=== PATIENT | female | born 1940 | race Two or more races ===

== ENCOUNTER 2016-03-21 09:48 | Day surgery (SDC) | payer MEDICARE, OTHER ==
[~2016-03-21 09:48] MED LIST: FENTANYL 0 ML ONE; FENTANYL 250 MCG/5 ML AMP IV PRN; IV START KIT ONE; LACTATED RINGERS 1,000 ML IV SCH; LACTATED RINGERS 1,000 ML ONE; LIDOCAINE Viscous 2% 15 ML UDCUP ONE; LIDOCAINE Viscous 2% 15 ML UDCUP PO PRN; MIDAZOLAM HCL 5 MG/5 ML VIAL IV PRN; MIDAZOLAM HCL 5 MG/5 ML VIAL ONE
[2016-03-21] MEDS ORDERED: MIDAZOLAM HCL 5 MG/5 ML VIAL ONE (10:43)
[2016-03-21] MEDS ORDERED: LIDOCAINE Viscous 2% 15 ML UDCUP ONE (10:44)
[2016-03-21] MEDS ORDERED: FENTANYL 5 ML ONE (10:44)
[2016-03-21 16:39] LABS: HELICOBACTER PYLORII DETECTION NEGATIVE (NEGATIVE)
--- NOTE | 2016-03-23 14:56 | SURGPATH ---
[employer] [address] [place] [id number] Patient Name: GREY VÁSQUEZ MR#: [id number] : 1940 Gender: F Specimen #: [id number] Collected: 03/21/2016 Received: 03/22/2016 Reported: 03/23/2016 Submitting Phys: NATHANIEL BALLARD Copy [facility] Clinical History / Pre-Operative Diagnosis: ANEMIA; MELENA; ABDOMINAL PAIN; RULE OUT GIARDIA, CELIAC SPRUE AND GASTRITIS Specimen Source / Surgical Procedure Performed: #1-ANTRAL; #2-DUODENAL Interpretation: 1. GASTRIC ANTRUM, BIOPSY: - CHRONIC ACTIVE HELICOBACTER GASTRITIS 2. DUODENUM, BIOPSY: - NO PATHOLOGIC DIAGNOSIS Electronically Signed Out Hector Ji M.D. Gross Description: #1 The specimen is received in a formalin filled container labeled with the patient's name and "antral". Three soria biopsies are 0.2, 0.3 and 0.4 cm. Totally embedded in cassette #1. #2 The specimen is received in a formalin filled container labeled with the patient's name and "duodenal". Two soria biopsies are 0.2 and 0.4 cm. Totally embedded in cassette #2. Sylwia Nation Microscopic Description: 1. Levels reveal gastric mucosa with an unremarkable architecture. The lamina propria is expanded by a mixture of chronic and acute inflammatory cells. Numerous neutrophils are also seen within the glandular epithelium. Ulceration, dysplasia and malignancy are not identified. A Helicobacter immunostain is performed revealing rare organisms in the mucus layer. 2. Levels reveal small intestinal mucosa with a normal villous architecture. Ulceration, acute inflammation, granulomas, intraepithelial lymphocytosis, Giardia organisms, dysplasia and malignancy are not seen. (Analyte-specific reagents (ASR) are used in many laboratory tests necessary for standard medical care and generally do not require FDA approval. This test was developed and its performance characteristics determined by [facility]. It has not been cleared or approved by the U.S. Food and Drug Administration. [facility] is certified under the Clinical Laboratory Improvement Amendments of 1988 as qualified to perform high complexity clinical laboratory testing. All controls stain as expected.) 1: 61464, 62193 2: 06356 K29.30 B96.81
--- NOTE | 2016-03-26 12:28 | PROCNOTE ---
GREY VÁSQUEZ [id number] DATE OF SERVICE: 03/26/2106 ADDENDUM: This 75-year-old female patient was in the practice of Loreta Penn, nurse practitioner underwent upper endoscopy on March 22 for melena, epigastric pain, and anemia. The upper endoscopy demonstrated gastritis without ulcer, or bacteria. Antral biopsies confirm the presence of Helicobacter pylori within the stomach. Biaxin and metronidazole both 500 mg twice daily for 10 days have being added to prescriptions of famotidine. Medical follow up will be by nurse javed Green. JOB #: [id number] HECTOR/renu Cc: Loreta Penn nurse practitioner at [facility]
== END 2016-03-21 12:30 | disposition home or self-care (01) ==
LOC: SDC 09:48
PROVIDERS: ATTEND Internal Medicine Gastroenterology
PROC: 0DB98ZX Excision of Duodenum, Via Natural or Artificial Opening Endoscopic, Diagnostic (ICD-10-PCS; principal; 2016-03-21)
PROC: 0DB68ZX Excision of Stomach, Via Natural or Artificial Opening Endoscopic, Diagnostic (ICD-10-PCS; 2016-03-21)
PROC: 0DJD8ZZ Inspection of Lower Intestinal Tract, Via Natural or Artificial Opening Endoscopic (ICD-10-PCS; 2016-03-21)
DX: D50.9 Iron deficiency anemia, unspecified (principal); K29.50 Unspecified chronic gastritis without bleeding; B96.81 Helicobacter pylori [H. pylori] as the cause of diseases classified elsewhere; K29.80 Duodenitis without bleeding; R10.33 Periumbilical pain; K92.1 Melena; Z79.82 Long term (current) use of aspirin; I10 Essential (primary) hypertension; E78.5 Hyperlipidemia, unspecified; E66.9 Obesity, unspecified; Z79.84 Long term (current) use of oral hypoglycemic drugs; H40.9 Unspecified glaucoma
CPT/HCPCS: 43239; 45378; 87081; J3010; J2250; A9270; J7120

== ENCOUNTER 2016-03-22 11:08 | Day surgery (SDC) | payer MEDICARE, OTHER ==
[~2016-03-22 11:08] MED LIST changes: -FENTANYL 0 ML ONE; -IV START KIT ONE; -LACTATED RINGERS 1,000 ML ONE; -LIDOCAINE Viscous 2% 15 ML UDCUP ONE; -LIDOCAINE Viscous 2% 15 ML UDCUP PO PRN; -MIDAZOLAM HCL 5 MG/5 ML VIAL ONE
[2016-03-22] MEDS ORDERED: IV START KIT ONE (11:18)
[2016-03-22] MEDS ORDERED: LACTATED RINGERS 1,000 ML ONE (11:18)
== END 2016-03-22 13:58 | disposition home or self-care (01) ==
LOC: SUPCPDRO 11:08 → SDC 11:08
PROVIDERS: ATTEND Internal Medicine Gastroenterology
PROC: 0DJD8ZZ Inspection of Lower Intestinal Tract, Via Natural or Artificial Opening Endoscopic (ICD-10-PCS; principal; 2016-03-22)
DX: D50.9 Iron deficiency anemia, unspecified (principal); K92.1 Melena; K57.30 Diverticulosis of large intestine without perforation or abscess without bleeding; I10 Essential (primary) hypertension; E11.9 Type 2 diabetes mellitus without complications; E78.5 Hyperlipidemia, unspecified; H40.9 Unspecified glaucoma; Z79.84 Long term (current) use of oral hypoglycemic drugs
CPT/HCPCS: 45378; J7120

== ENCOUNTER 2016-05-19 16:06 | Inpatient (IN) | payer MEDICARE, OTHER ==
[2016-05-19 17:28] LABS: ABSOLUTE NEUTROPHIL COUNT 5.9 K/mm3 (1.8-7.7); BASO % 0.5 % (0.2-1.0); HEMATOCRIT 31.1 % (37.0-47.0); HEMOGLOBIN 10.4 gm/l (12.0-16.0); IMM NEUT% 0.4 % (0-1); LYMPH # 0.6 (1.0-4.8); LYMPH % 8.2 % (15-45); MEAN CELL VOLUME 90.1 fl (81.0-99.0); MEAN CORPUSCULAR HEMOGLOBIN 30.1 pg (27.0-31.0); MEAN CORPUSCULAR HGB CONC 33.4 g/dl (33.0-37.0); MEAN PLATELET VOLUME 9.5 fl (7.4-10.4); MONO # 0.7 (0.0-0.8); MONO % 9.9 % (4-12); PLATELET COUNT 215 K/mm3 (130-400); RED CELL DISTRIBUTION WIDTH 12.4 % (11.5-14.5)
[2016-05-19 17:42] LABS: ALB/GLOB RATIO 1.2 (>1.0); MAGNESIUM 1.4 mg/dL (1.9-2.7)
[2016-05-19 17:55] LABS: SPECIFIC GRAVITY 1.015 (1.001-1.030); URINE BILIRUBIN NEGATIVE (NEGATIVE); URINE BLOOD 4+ (NEGATIVE); URINE GLUCOSE (UA) NEGATIVE (NEGATIVE); URINE LEUKOCYTE ESTERASE 1+ (NEGATIVE); URINE NITRITE POSITIVE (NEGATIVE); URINE PROTEIN 2+ (NEGATIVE); URINE UROBILINOGEN NORMAL (0-1 mg/dl)
[2016-05-19 17:58] LABS: URINE APPEARANCE CLOUDY; URINE COLOR DARK YELLOW
[2016-05-19 17:59] LABS: CKMB ISOENZYME 0.6 ng/ml (0.6-6.3); TROPONIN I 0.07 ng/ml (0.0-0.06)
[2016-05-19] MEDS ORDERED: MAGNESIUM SULFATE 1 G/100 ML 100 ML IV ONE ×2 (18:06→18:38)
[2016-05-19] MEDS ORDERED: CEFTRIAXONE 1 GRAM DUPLEX 50 ML IV ONE (18:06)
[2016-05-19] MEDS ORDERED: SODIUM CHLORIDE 0.9% 1,000 ML ONE (18:06)
--- NOTE | 2016-05-19 18:25 | RAD ---
CHEST 2 VIEWS HISTORY: Increased weakness. Frontal and lateral chest radiographs dated 05/19/2016.. COMPARISON: None. FINDINGS: FOCAL AIRSPACE OPACITY: Extensive reticular opacities suspicious for fibrotic change. Asymmetric densities of the right midlung field may reflect infiltrate. PLEURAL EFFUSION: None. CARDIOMEDIASTINAL SILHOUETTE: Nonenlarged. PNEUMOTHORAX: None identified. OSSEOUS STRUCTURES: Findings of thoracic disc degeneration. IMPRESSION: Diffuse reticular opacities suspicious for pulmonary fibrosis. Additional density at the right midlung field raises the possibility of superimposed right upper lobe pneumonia. Short-term follow-up imaging is recommended.
[2016-05-19 18:27] LABS: URINE EPITHELIAL CELLS 0-2 /hpf; URINE RBC 20-30 /hpf; URINE WBC 20-30 /hpf
[2016-05-19 18:28] LABS: URINE BACTERIA 2+
[2016-05-19] MEDS ORDERED: ACETAMINOPHEN 500 MG TABLET ONE (18:38)
[2016-05-19] MEDS ORDERED: AZITHROMYCIN 250 MG TABLET ONE (18:39)
[2016-05-19] MEDS ORDERED: INSULIN ASPART (DOSE) 100 UNITS/1 ML SUB-Q PRN (20:26)
[2016-05-19] MEDS ORDERED: BISACODYL 5 MG TABLET.EC PO PRN (20:26)
[2016-05-19] MEDS ORDERED: MENTHOL/CETYLPYRD 1 EACH LOZENGE PO PRN (20:26)
[2016-05-19] MEDS ORDERED: BISACODYL 10 MG SUP PR PRN (20:26)
[2016-05-19] MEDS ORDERED: BLISTEX LIPSTICK 1 EACH TP PRN (20:26)
[2016-05-19] MEDS ORDERED: MAGNESIUM HYDROXIDE 30 ML UDCUP PO PRN (20:26)
[2016-05-19] MEDS ORDERED: ENOXAPARIN SODIUM 40 MG/0.4 ML SYRINGE SUB-Q SCH (20:30)
[2016-05-19] MEDS ORDERED: ENOXAPARIN SODIUM 30 MG/0.3 ML SYRINGE SUB-Q SCH (21:00)
[2016-05-19] MEDS ORDERED: INSULIN GLARGINE (DOSE) 100 UNITS/ML UNIT SUB-Q SCH (21:00)
[2016-05-19] MEDS ORDERED: SODIUM CHLORIDE 0.9% 1,000 ML IV SCH (21:00)
[2016-05-19] MEDS ORDERED: PUMP TUBING ONE (21:05)
[2016-05-19 21:36] VITALS: BMI 27.6
[2016-05-19] MEDS ORDERED: SODIUM BICARBONATE 8.4% VIAL 150 MEQ in D5W 1,000 ML IV SCH ×2 (22:00→23:00)
[2016-05-19] MEDS ORDERED: IOPAMIDOL 370 (76%) 100 ML VIAL IV ONE (22:27)
[2016-05-19] MEDS: DOCUSATE SODIUM 100 MG CAPSULE PO SCH (22:51)
[2016-05-19] MEDS: LATANOPROST 0.005% 50 GTTS/2.5 ML BOT SOLN.DROP OU SCH (22:59)
[2016-05-20] MEDS ORDERED: SODIUM CHLORIDE 0.9% 500 ML IV SCH (05:45)
[2016-05-20 06:44] LABS: ABSOLUTE NEUTROPHIL COUNT 4.6 K/mm3 (1.8-7.7); BASO % 0.7 % (0.2-1.0); HEMATOCRIT 29.2 % (37.0-47.0); IMM NEUT% 0.5 % (0-1); LYMPH # 0.5 (1.0-4.8); LYMPH % 8.7 % (15-45); MEAN CELL VOLUME 87.7 fl (81.0-99.0); MEAN CORPUSCULAR HGB CONC 34.2 g/dl (33.0-37.0); MEAN PLATELET VOLUME 9.4 fl (7.4-10.4); MONO # 0.4 (0.0-0.8); MONO % 7.1 % (4-12); PLATELET COUNT 160 K/mm3 (130-400); RED CELL DISTRIBUTION WIDTH 12.1 % (11.5-14.5)
[2016-05-20 07:03] LABS: ALB/GLOB RATIO 1.2 (>1.0); ALBUMIN 3.4 gm/dL (3.5-5.7); CALCIUM 8.5 mg/dL (8.6-10.3)
--- NOTE | 2016-05-20 08:29 | PDOC43 ---
- Subjective Chief Complaint: Fever Patient reports feeling better. Ate breakfast today, finished meal. No respiratory c/o. No abdominal c/o. Only has walked to bathroom so far. No new c/ o. - Objective Vital Signs Temperature 98.2 F 05/20/16 07:00 Pulse Rate 90 05/20/16 07:00 Respiratory Rate 18 05/20/16 07:00 Blood Pressure 163/86 05/20/16 07:00 O2 Saturation by Pulse Oximetry 96 05/20/16 07:00 Oxygen Delivery Method Room Air Oxygen Flow Rate 0 Vital Signs Last 12 Hours Temp Pulse Resp BP Pulse Ox 05/20/16 07:00 98.2 F 90 18 163/86 96 05/20/16 03:00 98.3 F 83 18 138/87 95 05/19/16 23:05 97.8 F 60 18 145/71 95 Intake and Output 05/18/16 05/19/16 05/20/16 23:59 23:59 23:59 Intake Total 1575 Output Total 1450 Balance 125 General: Alert, Cooperative, Other (appears to be feeling better today.), No Acute Distress Lungs: Clear to Auscultation Bilaterally, Normal Air Movement Cardiovascular: Regular Rate and Rhythm Abdomen: Soft, Normal Bowel Sounds, Non-Distended Extremities: Other (pulses good bilat), No Edema, No Tenderness Skin: Normal Color Neurological: Normal Speech Psych/Mental Status: Normal Affect (appears bright, feeling better today.) Laboratory 05/20/16 05:38 05/20/16 05:38 05/20/16 05/20/16 05/19/16 07:33 05:38 22:53 RBC 3.33 L Estimated GFR 44 L POC Capillary Glucose 167 H 160 H Calcium 8.5 L AST 41 H Troponin I 0.07 H Total Protein 6.3 L Albumin 3.4 L Urine, blood cultures pending. Prelim CT - Chest - no pneumonia Abd/pelvis - large pelvic hernia, no acute changes. No diverticulitis. Current Medications: Current meds reviewed in EMR. Active Medications Acetaminophen (Tylenol) 650 mg PO Q6H PRN PRN Reason: Pain or Temperature > 100.5 F Aspirin (Ecotrin) 81 mg PO DAILY FABIANO Benzocaine/Menthol (Cepacol) 1 each PO PRN PRN PRN Reason: Sore Throat Bisacodyl (Dulcolax) 10 mg NE DAILY PRN PRN Reason: Constipation Bisacodyl (Dulcolax) 5 mg PO DAILY PRN PRN Reason: Constipation Docusate Sodium (Colace) 100 mg PO BID [facility] Last Admin: 05/19/16 22:51 Dose: 100 mg Enoxaparin Sodium (Lovenox) 30 mg SUB-Q Q24H [facility] Last Admin: 05/19/16 22:51 Dose: 30 mg Azithromycin 500 mg/ Sodium (Chloride) 250 mls @ 250 mls/hr IV Q24H [facility] Stop: 05/21/16 18:29 Ceftriaxone Sodium/Dextrose 1 (g/ Premix (D5W) 50 ml) 50 mls @ 100 mls/hr IV Q24H [facility] Sodium Chloride (Sodium Chloride 0.9%) 100 mls @ 25 mls/hr IV PRN PRN PRN Reason: Flush Insulin Aspart (Novolog (Dose)) 0 units SUB-Q WM/BEDTIME PRN; Protocol PRN Reason: Blood Sugar > Insulin Glargine (Lantus (Dose)) 15 units SUB-Q Q24H [facility] Last Admin: 05/19/16 22:59 Dose: 15 units Latanoprost (Xalatan) 1 gtts OU BEDTIME [facility] Last Admin: 05/19/16 22:59 Dose: 1 gtts Magnesium Hydroxide (Milk Of Magnesia) 30 ml PO DAILY PRN PRN Reason: Constipation Petrolatum/Paraffin/Mineral Oil (Blistex) 1 each TP PRN PRN PRN Reason: Dry and/or chapped lips Sodium Chloride (Normal Saline 10ml Flush) 10 - 50 ml IV PRN PRN PRN Reason: IV Flush Last Admin: 05/19/16 22:49 Dose: 10 ml - Problems: Assessment/Plan (1) UTI (urinary tract infection) Qualifiers: Urinary tract infection type: site unspecified Hematuria presence: without hematuria Qualifier Code: (N39.0) Urinary tract infection, site not specified Status: SuspectedAssessment/Plan: Bacterial, organism not identified yet. On Rocephin, awaiting culture of urine, blood. CT did not suggest significant renal abnormality. (2) Fever Qualifiers: Encounter type: initial encounter Status: AcuteAssessment/Plan: Suspect ascending UTI (bacterial, ID not known yet) as cause, with sepsis, now improved. Started on Rocephin, azithromycin; but with neg CT chest, will plan stop azithromycin. Continue on Rocephin, await culture results from blood and urine (3) CKD (chronic kidney disease) stage 3, GFR 30-59 ml/min Status: AcuteAssessment/Plan: Cr 1.4->1.2 with fluids. Previous stopped metformin, recheck in am. (4) Diabetes mellitus, type II Qualifiers: Diabetes mellitus complication status: with kidney complications Diabetes mellitus complication detail: with chronic kidney disease Diabetes mellitus half-way insulin use: without ocean transportation intermediary use Chronic kidney disease stage: stage 3 (moderate) Qualifier Code: (E11.22) Type 2 diabetes mellitus with diabetic chronic kidney disease Status: ChronicAssessment/Plan : Had been on metformin; plan revision to JAC saenz long acting insulin for now planned. (5) HTN (hypertension) Qualifiers: Hypertension type: essential hypertension Qualifier Code: (I10) Essential (primary) hypertension Status: AcuteAssessment/Plan: Holding lisinopril due to sl elevation of creatinine, consider resuming later. VTE Prophylaxis: Enoxaparin Disposition: Anticipate return home in 1-2 days, awaiting culture results.
[2016-05-20] MEDS: DOCUSATE SODIUM 100 MG CAPSULE PO SCH ×2 (09:36→20:33)
[2016-05-20] MEDS: GLIMEPIRIDE 1 MG TABLET PO SCH (09:36)
[2016-05-20] MEDS: ASPIRIN (ENTERIC COATED) 81 MG TABLET.EC PO SCH (09:36)
--- NOTE | 2016-05-20 10:03 | CT ---
CHEST ABDOMEN PELVIS CT WITH CONTRAST HISTORY: Abdominal pain. TECHNIQUE: Following the administration of 75 mL Isovue-370 intravenous contrast, contiguous axial images were acquired from the thoracic inlet to the diaphragmatic hiatus, subsequent imaging from diaphragmatic hiatus to the ischial tuberosities. COMPARISON: None. FINDINGS: THORAX LUNGS: Moderate to severe fibrotic changes of the lungs a more focal area of increased attenuation is seen at the left upper lobe focal fibrosis and pneumonic changes are possible at this site. No pleural effusion.. YANCI AND MEDIASTINUM: Increased number of small mediastinal and hilar lymph nodes. No obvious pulmonary arterial filling defect.. AXILLAE: No grossly enlarged lymph nodes. SUPRACLAVICULAR FOSSAE: No enlarged lymph nodes. ABDOMEN AND PELVIS LIVER AND SPLEEN: No focal lesion detected. ADRENAL GLANDS AND PANCREAS: Grossly unremarkable. Fatty atrophy of the pancreas. KIDNEYS: Right superior pole cyst, 2.9 cm in size with minor cortical scarring on the right. No collecting system dilatation. GALLBLADDER: Present. BOWEL: Moderate fecal load no gross small bowel dilatation. Bowel content is seen within a large ventral hernia without fluid, wall thickening, or bowel dilatation. Colonic diverticulosis without features of diverticulitis. The appendix is not clearly identified. PELVIC ORGANS: Post hysterectomy change, no adnexal mass effect. INGUINAL REGIONS: Fatty inguinal hernia formation. FREE FLUID: No gross free fluid identified. ABDOMINOPELVIC LYMPH NODES: No abnormally enlarged lymph nodes identified. ABDOMINAL AORTA: Minor atherosclerotic calcifications. OSSEOUS STRUCTURES: Findings of lower lumbar spondylosis. Canal stenosis at L4-5. IMPRESSION: 1. Extensive fibrotic changes of the lungs. More focal increased attenuation at the right upper lobe raises the possibility of pneumonia. 2. No obvious pulmonary arterial filling defect. 3. Large ventral hernia with bowel content without obvious features of incarceration. 4. Post hysterectomy change. Colonic diverticulosis without diverticulitis. Lumbar spondylosis with canal stenosis at L4-5 level. 5. Noninflammatory, nonobstructive appearance of bowel. Moderately extensive fecal load. Preliminary report relayed to to the inpatient clinical medical service by Dr. Ruiz on 05/19/2016 at 2324 hours.
--- NOTE | 2016-05-20 10:46 | HP ---
GREY VÁSQUEZ [id number] DATE OF ADMISSION: May 19, 2016 CHIEF COMPLAINT: Weakness. HISTORY OF PRESENT ILLNESS: The patient is a 75-year-old female reporting a three-day history of weakness noting temperatures up to 102 degrees. She has had some cough with a little bit of phlegm yesterday but none today. She has had some dysuria, some abdominal pain, some back pain, no vomiting, a little headache. Her mouth has been dry, and she has been somewhat thirsty. PAST MEDICAL HISTORY: Is remarkable for: 1. Diabetes. She had been taken off metformin recently but is not sure the reason why although her creatinine on testing here today is 1.4 which suggests this might be the reason. 2. Hypertension. 3. Dyslipidemia. 4. History of anemia. PAST SURGICAL HISTORY: 1. Colonoscopy with a scope done earlier this year which was not diagnostic because of inadequate prep. 2. She has had an umbilical hernia repair. 3. Esophagogastric in March of 2016 as well with mild duodenitis and gastritis. 4. She has had previous oophorectomy and hysterectomy. ALLERGIES: NO KNOWN DRUG ALLERGIES. CURRENT MEDICATIONS: 1. She has stopped her metformin. 2. She takes Zestoretic 10/12.5 orally daily. 3. Pravastatin 10 mg at bedtime although family was thinking it was lovastatin. 4. Aspirin 81 mg daily. 5. Previous note had listed Xalatan eyedrops in both eyes at bedtime. SOCIAL HISTORY: She lives at home in [place] in a house. She is single. She has a sister. No smoking, quit over 40 years ago. No regular alcohol use. She is retired. She previously worked at [employer]. She has no kids. Lutheran, she goes to the [employer]. Hobbies include reading and television. She can walk up to a mile without difficulty. She has no pets. FAMILY HISTORY: Father at 41 of myocardial infarction. Mom at age 89 of myocardial infarction. REVIEW OF SYSTEMS: Eyes have been okay. Ears, okay. Nose has been okay. Mouth is okay. Teeth, has dentures. Neck has been okay. Breathing, she has had little bit of a problem with a little bit of cough but no major problems in this regard. Heart has been okay. She did have a heart problem or discomfort about seven years ago but not recently. Stomach, she notes it hurts all the time. She has not had vomiting or nausea, but she does have diarrhea sometimes. She initially reported some dysuria but later denies it. She does report some frequency. Denies hematuria. Has not had leg swelling, no foot complaints. Arms have been okay. Skin has been okay. No history of stroke. She does not have advanced directive. PHYSICAL EXAMINATION: GENERAL: Nontoxic female, slightly flushed appearing. VITAL SIGNS: She is reported to weigh 123 pounds. Heart rate 83, blood pressure 140/59, respirations 23 taken from the monitor while in the emergency room, and 98% saturation on room air. HEENT: Head is normocephalic, atraumatic. Eyes are unremarkable. Ears are normal. Nose is normal. Mouth is edentulous. Mucous membranes are unremarkable. NECK: Is supple, no jugular venous distention, no masses, no rigidity. CHEST: Diffuse crackles bilaterally consistent with pulmonary fibrosis. CARDIOVASCULAR: Regular rate and rhythm. ABDOMEN: Well-healed scar in the midline. Some tenderness noted in the left costovertebral angle area with percussion but lower abdominal area with some discomfort particularly toward the right lower quadrant. There is no rebound noted. GENITOURINARY: Exam is deferred. EXTREMITIES: Leg are unremarkable, no clubbing, cyanosis or edema. No cellulitis, no ulceration noted. Hands are unremarkable. Arms, unremarkable for age. NEUROLOGIC: Cranial nerves are grossly intact. Speech is clear and fluent. Syrian is her preferred language but she does speak some Kinyarwanda. DIAGNOSTIC IMAGING STUDIES: Chest x-ray shows diffuse reticular opacities suspicious for pulmonary fibrosis. Additional density right mid lung, possible right upper lobe pneumonia. LABORATORY STUDIES: White count 7.3, hemoglobin 10.4, platelets 215, 000. Lactate 1.9, sodium 130, potassium 3.9, chloride 99, CO2 22, BUN 25, creatinine 1.4, glucose 223, calcium 9.0, magnesium 1.4, AST 17, ALT 10, alkaline phosphatase 77, albumin 4.0, CK-MB is 0.6, troponin 0.07. Urinalysis, specific gravity 1.015, 2+ protein, positive nitrites, 1+ leukocyte esterase, 20 to 30 red cells, 20 to 30 white cells and 2+ bacteria. Influenza testing is negative. ASSESSMENT AND PLAN: 1. Fever. Suspect urinary tract infection in regard to an ascending urinary tract infection or pyelonephritis but with a history of abdominal pain nonspecific in nature and previously nondiagnostic colonoscopy. We will check CT abdomen and pelvis to evaluate for diverticulitis or other changes. We will be treating with Rocephin and consider adding Flagyl if intraabdominal process suspected. 2. Pulmonary fibrosis. Cannot rule out community acquired pneumonia, unspecified bacteria. We will add azithromycin at this time and will be checking a CT of the chest as well. 3. Diabetes mellitus type 2. Anticipate holding metformin as has already been done and we will be doing capillary blood glucose and sliding scale insulin along with low dose Lantus. Anticipate later discharge with oral hypoglycemic agent such as Amaryl. 4. Chronic kidney disease. Creatinine is 1.4 with a GFR estimated at 37. Plan IV fluids. Anticipate hydration protocol and we will continue to hold metformin. We will also be holding lisinopril tonight and recheck in the morning. 5. History of dyslipidemia. We will continue on statin at discharge. 6. History of anemia with previous colonoscopy not useful. Her hemoglobin is 10.4 at this time. 7. Sepsis. Patient does appear to qualify with heart rate normal but a respiratory rate of 23 in the emergency room. White count is normal but elevated temperature to 102 with infectious source suspected would make this. Anticipate 1 liter normal saline bolus but the hydration protocol. Continue the antibiotics as mentioned above. We will anticipate rechecking a lactate later tonight. 8. Code status: FULL CODE. 9. Venous thrombosis prophylaxis, anticipate renally adjusted Lovenox and reassess in the morning. Cc: Christiana Richardson PA-C
[2016-05-20] MEDS: ACETAMINOPHEN 325 MG TABLET PO PRN ×2 (10:57→19:48)
[2016-05-20] MEDS ORDERED: PUMP TUBING ONE (16:58)
[2016-05-20] MEDS: CEFTRIAXONE 1 GRAM DUPLEX 1 G in Premix (D5W) 50 ml 1 EACH IV SCH (17:19)
[2016-05-20] MEDS: SODIUM CHLORIDE 0.9% 100 ML IV PRN (17:19)
[2016-05-20] MEDS ORDERED: AZITHROMYCIN 500 MG in SODIUM CHLORIDE 0.9% 250 ML IV SCH (17:30)
[2016-05-20] MEDS: ENOXAPARIN SODIUM 40 MG/0.4 ML SYRINGE SUB-Q SCH (20:33)
[2016-05-20] MEDS: METOPROLOL TARTRATE 25 MG TABLET PO SCH ×2 (20:33→20:47)
[2016-05-20] MEDS: LATANOPROST 0.005% 50 GTTS/2.5 ML BOT SOLN.DROP OU SCH (20:34)
[2016-05-20] MEDS ORDERED: DILTIAZEM HCL 30 MG TABLET PO ONE (21:22)
[2016-05-21] MEDS: ACETAMINOPHEN 325 MG TABLET PO PRN ×2 (04:04→18:01)
[2016-05-21] MEDS ORDERED: IBUPROFEN 600 MG TABLET PO ONE (04:31)
[2016-05-21] MEDS: DILTIAZEM HCL 30 MG TABLET PO SCH ×4 (06:12→20:53)
[2016-05-21 07:20] LABS: ABSOLUTE NEUTROPHIL COUNT 5.5 K/mm3 (1.8-7.7); BASO % 0.6 % (0.2-1.0); EOS % 0.6 % (0.9-2.9); HEMATOCRIT 27.9 % (37.0-47.0); HEMOGLOBIN 9.7 gm/l (12.0-16.0); IMM NEUT% 0.3 % (0-1); LYMPH # 0.5 (1.0-4.8); MEAN CELL VOLUME 87.2 fl (81.0-99.0); MEAN CORPUSCULAR HEMOGLOBIN 30.3 pg (27.0-31.0); MEAN CORPUSCULAR HGB CONC 34.8 g/dl (33.0-37.0); MONO # 0.7 (0.0-0.8); NEUT % 80.5 % (43-75); PLATELET COUNT 154 K/mm3 (130-400)
[2016-05-21 07:30] LABS: ALB/GLOB RATIO 1.1 (>1.0); ALBUMIN 3.3 gm/dL (3.5-5.7); CALCIUM 8.6 mg/dL (8.6-10.3)
[2016-05-21 07:32] LABS: TROPONIN I 0.05 ng/ml (0.0-0.06)
[2016-05-21 07:35] LABS: CKMB ISOENZYME 0.8 ng/ml (0.6-6.3)
[2016-05-21] MEDS: METOPROLOL TARTRATE 25 MG TABLET PO SCH ×2 (09:19→20:53)
[2016-05-21] MEDS: DOCUSATE SODIUM 100 MG CAPSULE PO SCH ×2 (09:19→20:53)
[2016-05-21] MEDS: GLIMEPIRIDE 1 MG TABLET PO SCH (09:19)
[2016-05-21] MEDS: ASPIRIN (ENTERIC COATED) 81 MG TABLET.EC PO SCH (09:19)
--- NOTE | 2016-05-21 09:42 | PDOC43 ---
- Subjective Chief Complaint: Fever Patient reports feeling well. Eating well, walked ok. Breathing is better. She was noted to have some atrial fib, and was given diltiazem, but now in SB. - Objective Vital Signs Temperature 100.7 F 05/21/16 08:00 Pulse Rate 76 05/21/16 08:00 Respiratory Rate 18 05/21/16 08:00 Blood Pressure 135/69 05/21/16 08:00 O2 Saturation by Pulse Oximetry 95 05/21/16 08:00 Oxygen Delivery Method Room Air Oxygen Flow Rate 0 Vital Signs Last 12 Hours Temp Pulse Resp BP Pulse Ox 05/21/16 08:00 100.7 F 76 18 135/69 95 05/21/16 03:20 100.7 F 110 18 157/93 97 05/21/16 03:00 18 05/20/16 23:31 98.2 F 73 18 124/66 98 Intake and Output 05/19/16 05/20/16 05/21/16 23:59 23:59 23:59 Intake Total 2999 300 Output Total 1650 1200 Balance 1349 -900 General: Alert, Cooperative, No Acute Distress Lungs: Normal Air Movement, No Clear to Auscultation Bilaterally (Some crackles noted bilat, improved from previous, c/w pulmonary fibrosis) Cardiovascular: Regular Rate and Rhythm Abdomen: Soft, Tenderness, Normal Bowel Sounds, Non-Distended Extremities: No Edema, No Tenderness Skin: Normal Color Neurological: Normal Speech Psych/Mental Status: Normal Affect, Normal Mood Laboratory 05/21/16 05:24 05/21/16 05:24 05/21/16 05/21/16 05/20/16 07:52 05:24 21:00 RBC 3.20 L Estimated GFR 44 L POC Capillary Glucose 126 H 146 H Total Protein 6.3 L Albumin 3.3 L 05/20/16 05/20/16 17:25 13:43 RBC Estimated GFR POC Capillary Glucose 150 H 125 H Total Protein Albumin Current Medications: Current meds reviewed in EMR. - Problems: Assessment/Plan (1) UTI (urinary tract infection) Qualifiers: Urinary tract infection type: site unspecified Hematuria presence: without hematuria Qualifier Code: (N39.0) Urinary tract infection, site not specified Status: SuspectedAssessment/Plan: Bacterial, Klebsiella pneumoniae identified On Rocephin, anticipate revision to PO (cefazolin), but with fever today, will continue on IV. CT did not suggest significant renal abnormality. (2) Fever Qualifiers: Encounter type: initial encounter Status: AcuteAssessment/Plan: Suspect ascending UTI (Klebsiella) as cause, with sepsis, improving Started on Rocephin, azithromycin; Had stopped azithromycin based on prelim CT, but now with poss pneumonia listed, will resume. Awaiting final culture results from blood (3) CKD (chronic kidney disease) stage 3, GFR 30-59 ml/min Status: AcuteAssessment/Plan: Cr 1.4->1.2 with fluids. Previous stopped metformin, recheck in am. (4) Diabetes mellitus, type II Qualifiers: Diabetes mellitus complication status: with kidney complications Diabetes mellitus complication detail: with chronic kidney disease Diabetes mellitus assisted insulin use: without assisted use Chronic kidney disease stage: stage 3 (moderate) Qualifier Code: (E11.22) Type 2 diabetes mellitus with diabetic chronic kidney disease Status: ChronicAssessment/Plan : Had been on metformin; revised to amaryl, BG fairly good so far: Laboratory Tests 05/20/16 05/20/16 05/20/16 13:43 17:25 21:00 Glucose POC Capillary Glucose 125 H 150 H 146 H 05/21/16 05/21/16 05:24 07:52 Glucose 133 H POC Capillary Glucose 126 H (5) HTN (hypertension) Qualifiers: Hypertension type: essential hypertension Qualifier Code: (I10) Essential (primary) hypertension Status: AcuteAssessment/Plan: Holding lisinopril due to sl elevation of creatinine, consider resuming later. BP mildly elevated currently. (6) Atrial fibrillation Qualifiers: Atrial fibrillation type: paroxysmal Qualifier Code: (I48.0) Paroxysmal atrial fibrillation Status: AcuteAssessment/Plan: Episode of paroxysmal atrial fib noted; started on diltiazem. Anticipate staying on telemetry today, check echo tomorrow. Not on anticoagulation currently. VTE Prophylaxis: Enoxaparin, VTE dose Disposition: Anticipate return home 05/22, awaiting blood culture results, echo.
[2016-05-21] MEDS ORDERED: SODIUM CHLORIDE 0.9% FLUSH 10 ML ONE (10:21)
[2016-05-21] MEDS ORDERED: IV START KIT ONE (10:22)
[2016-05-21] MEDS: AZITHROMYCIN 500 MG in SODIUM CHLORIDE 0.9% 250 ML IV SCH (12:00)
[2016-05-21] MEDS ORDERED: PUMP TUBING ONE (17:12)
[2016-05-21] MEDS: CEFTRIAXONE 1 GRAM DUPLEX 1 G in Premix (D5W) 50 ml 1 EACH IV SCH (17:18)
[2016-05-21] MEDS: ENOXAPARIN SODIUM 40 MG/0.4 ML SYRINGE SUB-Q SCH (20:52)
[2016-05-21] MEDS: LATANOPROST 0.005% 50 GTTS/2.5 ML BOT SOLN.DROP OU SCH (20:52)
[2016-05-22] MEDS: ACETAMINOPHEN 325 MG TABLET PO PRN ×2 (00:17→08:32)
[2016-05-22] MEDS: GLIMEPIRIDE 1 MG TABLET PO SCH (08:30)
[2016-05-22] MEDS: METOPROLOL TARTRATE 25 MG TABLET PO SCH (08:31)
[2016-05-22] MEDS: DOCUSATE SODIUM 100 MG CAPSULE PO SCH (08:31)
[2016-05-22] MEDS: DILTIAZEM HCL 30 MG TABLET PO SCH (08:31)
[2016-05-22] MEDS: ASPIRIN (ENTERIC COATED) 81 MG TABLET.EC PO SCH (08:31)
[2016-05-22] MEDS ORDERED: LATANOPROST 0.005% 50 GTTS/2.5 ML BOT SOLN.DROP OU SCH (10:30)
[2016-05-22] MEDS ORDERED: PUMP TUBING ONE (11:42)
[2016-05-22] MEDS: AZITHROMYCIN 500 MG in SODIUM CHLORIDE 0.9% 250 ML IV SCH (11:44)
[2016-05-22] MEDS: SODIUM CHLORIDE 0.9% 100 ML IV PRN (11:45)
[2016-05-22 12:18] VITALS: BP 141/68
--- NOTE | 2016-05-22 14:06 | DS ---
GREY VÁSQUEZ [id number] : 1940 DATE OF ADMISSION: May 19, 2016 DATE OF DISCHARGE: May 22, 2016 ADMIT DIAGNOSES: 1. Ascending urinary tract infection. 2. Sepsis. 3. Pulmonary fibrosis. 4. Diabetes mellitus type 2. DISCHARGE DIAGNOSES: 1. Bacterial urinary tract infection with Klebsiella pneumoniae present on admission. 2. Fever secondary to urinary tract infection. 3. Sepsis secondary to urinary tract infection with fever, tachycardia and tachypnea. 4. Chronic kidney disease stage 3, related to diabetes. 5. Diabetes mellitus type 2, well controlled. Not on insulin therapy. 6. Chronic pulmonary fibrosis without current pulmonary infection. 7. Chronic anemia related to chronic kidney disease. 8. Paroxysmal atrial fibrillation, resolved. 9. Hypertension. PROCEDURES: 1. CT scan of the chest, abdomen and pelvis on May 19, 2016. This demonstrated extensive pulmonary fibrosis. No pulmonary arterial filling defect. Large ventral hernia without incarceration. Diverticulosis with diverticulitis. Lumbar spondylosis and moderate fecal load. 2. Echocardiogram on the day of discharge. Official report is not available but it did suggest normal systolic function and at least moderate aortic stenosis. CONSULTATIONS: Physical and occupational therapy. Patient was appropriate to return home. HISTORY ON ADMISSION: Ms. Gwen Lainez is a 75-year-old who presented with a three-day history of weakness and temperature up to 102 degrees. She did report dysuria and was found to have urine positive for nitrites and leukocyte esterase and a large amount of white blood cells. She was started on ceftriaxone and also azithromycin for potential pulmonary involvement. HOSPITAL COURSE: The patient was admitted to medical/surgical floor. She had rapid improvement. By the following day stated that she was feeling much better. On the afternoon of May 20, 2016, however, she had an episode of paroxysmal atrial fibrillation which spontaneously resolved. She was started on oral metoprolol. On May 22, 2016, she is feeling well and desires discharge to home. DISCHARGE EXAM: VITAL SIGNS: Temperature 98.5 degrees Fahrenheit, pulse 81, blood pressure 144/57, respiratory rate 16, oxygen saturation 92% on room air. CHEST: Does have crackles bilaterally consistent with pulmonary fibrosis. HEART: Is regular. ABDOMEN: Soft, nontender, normal bowel tones. EXTREMITIES: No edema. DISCHARGE PLAN: 1. Discharge to home. 2. Follow up with Christiana Rall, PAC, later this week. DISCHARGE DIET: Diabetic. DISCHARGE ACTIVITY: As tolerated. DISCHARGE MEDICATIONS: 1. Cefprozil 250 mg orally twice daily for five more days. 2. Metoprolol tartrate 25 mg orally twice daily. 3. Pravastatin 10 mg orally nightly. 4. Lisinopril with hydrochlorothiazide 11/23.5 one tablet daily. 5. Latanoprost eyedrops 0.05% one drop in each eye at bedtime. 6. Aspirin 81 mg orally daily. 7. Glimepiride 1 mg orally daily. 8. She has been taken off of metformin due to her chronic kidney disease.
== END 2016-05-22 13:04 | disposition home or self-care (01) | DRG 872 ==
LOC: ED 16:06 → MS 19:08
PROVIDERS: ADMIT Family Medicine; ATTEND Family Medicine
DX: A41.89 Other specified sepsis (principal); N39.0 Urinary tract infection, site not specified; J84.10 Pulmonary fibrosis, unspecified; E11.9 Type 2 diabetes mellitus without complications; E11.22 Type 2 diabetes mellitus with diabetic chronic kidney disease; I12.9 Hypertensive chronic kidney disease with stage 1 through stage 4 chronic kidney disease, or unspecified chronic kidney disease; N18.3 Chronic kidney disease, stage 3 (moderate); D63.1 Anemia in chronic kidney disease; I48.0 Paroxysmal atrial fibrillation; K43.9 Ventral hernia without obstruction or gangrene; M47.816 Spondylosis without myelopathy or radiculopathy, lumbar region; E78.5 Hyperlipidemia, unspecified; Z87.891 Personal history of nicotine dependence; D64.9 Anemia, unspecified; Z79.84 Long term (current) use of oral hypoglycemic drugs